=== PATIENT | male | born 1980 | race Caucasian/White ===

== ENCOUNTER 2018-11-05 17:10 | Emergency (ER) | payer SELFPAY ==
--- NOTE | 2018-11-05 17:19 | PDOC ---
Rapid Medical Evaluation Chief Complaint: Sore Throat Time Seen by Provider: 11/05/18 17:17 Medical Evaluation: Allergies Allergy/AdvReac Type Severity Reaction Status Date / Time No Known Allergies Allergy Verified 11/05/18 17:17 11/05/18 17:17 I have performed a brief in-person evaluation of this patient. The patient presents with a chief complaint of: sore throat this am Pertinent physical exam findings:unremarkable I have ordered the following:none The patient will proceed to the ED for further evaluation Discharge Disposition - Diagnosis Sore throat - Referrals - Patient Instructions - Post Discharge Activity
[2018-11-05 17:26] VITALS: BP 132/87; PULSE 96; TEMP 99.1; BMI 31.1
[2018-11-05] MEDS ORDERED: DEXAMETHASONE LIQUID 0.5 MG/5 ML 240 ML BULK BOTTLE PO ONE (18:52)
[2018-11-05] MEDS ORDERED: DEXAMETHASONE SOD PHOSPHATE 10 MG/1 ML VIAL ONE (18:55)
--- NOTE | 2018-11-05 18:55 | PDOC ---
History of Present Illness - General Chief Complaint: Sore Throat Stated Complaint: FEVER,SORE THROAT Time Seen by Provider: 11/05/18 17:17 - History of Present Illness Initial Comments: 11/05/18 18:54 38-year-old male without comorbidities presents for evaluation of sore throat and fever times one day. Past History - Past Medical History Allergies/Adverse Reactions: Allergies Allergy/AdvReac Type Severity Reaction Status Date / Time No Known Allergies Allergy Verified 11/05/18 17:17 Home Medications: Ambulatory Orders Penicillin V Potassium [Pen Vee K -] 500 mg PO QID #40 tablet 11/05/18 COPD: No - Immunization History Immunization Up to Date: No - Suicide/Smoking/Psychosocial Hx Smoking History: Never smoked Hx Alcohol Use: No Drug/Substance Use Hx: No Review of Systems - Review of Systems Constitutional: Yes: Fever HEENTM: Yes: Throat Pain, Throat Swelling, Difficulty Swallowing *Physical Exam - Vital Signs Last Vital Signs Temp Pulse Resp BP Pulse Ox 99.1 F 96 H 18 132/87 100 11/05/18 17:17 11/05/18 17:17 11/05/18 17:17 11/05/18 17:17 11/05/18 17:17 - Physical Exam Comments: 11/05/18 18:54 HEAD: NC/AT EYES: Conjuntiva clear Ears: Canals and TM's normal NOSE: No d/c THROAT: Moist mucous membrances, oral pharanx erythemic with exudate, uvula midline NECK: Supple without adenopathy CARDIAC: S1 S2 LUNGS: CTA Full and Equal breath sounds ABDOMEN: Soft NT ND MS: Full ROM in all joints without edema NEUROLOGIC: No gross sensory or motor deficits, NVID SKIN: Normal color and temperature no lesions or rashes Medical Decision Making - Medical Decision Making 11/05/18 18:54 We'll presumptively treat for strep throat based on examination and history *DC/Admit/Observation/Transfer Diagnosis at time of Disposition: Sore throat, Strep pharyngitis - Discharge Dispostion Disposition: HOME Condition at time of disposition: Stable Decision to Admit order: No - Prescriptions Prescriptions: Penicillin V Potassium [Pen Vee K -] 500 mg PO QID #40 tablet - Referrals Referrals: Celsa Gaspar MD [Staff Physician] - - Patient Instructions Printed Discharge Instructions: Strep Throat, DI for Strep Throat Additional Instructions: Please take the antibiotics as directed and finish the entire 10 day course. He will given a long-acting steroid in the emergency room which will help with your pain please avoid Advil Motrin Aleve and ibuprofen. You may take Tylenol for additional pain medication. Warm salt water gargles 5-6 times a day will help with your sore throat. Return to the emergency room for worsening symptoms and follow-up with internal medicine in one to 2 days for further evaluation and treatment options. - Post Discharge Activity
== END 2018-11-05 19:00 | disposition home or self-care (01) ==
LOC: JER 17:10 → JERFT 17:10
DX: J02.0 Streptococcal pharyngitis (principal); J02.9 Acute pharyngitis, unspecified
CPT/HCPCS: 99281-25